=== PATIENT | female | born 1990 | race Caucasian/White ===

== ENCOUNTER → 2018-01-16 | Outpatient (CLI) | payer OTHER | LOC: M LRY 18:49 | DX: M79.601 Pain in right arm (principal) | CPT/HCPCS: 73090 ==

== ENCOUNTER → 2019-03-30 | Outpatient (CLI) | payer BC ==
--- NOTE | 2019-03-30 08:50 | REP ---
Clinical: Infertility. Technique: Transvaginal examination. Comparison: None. Findings: Heterogeneous anteverted uterus measures 6.0 x 3.3 x 4.0 cm. Endometrial complex measures 4.5 mm thickness and demonstrates a normal trilaminar appearance. Right ovary measures 3.1 x 1.6 x 2.5 cm and includes 12.6 mm follicle along with six sub centimeter follicles measuring between 4.5 and 8.8 mm. Left ovary measures 2.2 x 1.6 x 1.4 cm and includes eight sub centimeter follicles between 1.0 and 2.5 mm. Impression: Few predominantly sub centimeter follicles as described above. Electronically Signed by Alon Kaplan MD 03/30/2019 08:42 A
[2019-03-30 10:32] LABS: ESTRADIOL 57.5 PG/ML; LUTEINIZING HORMONE 4.7 mIU/mL; PROGESTERONE 0.65 NG/ML
== END ==
LOC: M RAD 06:22
PROVIDERS: ATTEND Obstetrics & Gynecology Reproductive Endocrinology
DX: N97.9 Female infertility, unspecified (principal)

== ENCOUNTER → 2019-04-02 | Outpatient (CLI) | payer BC ==
--- NOTE | 2019-04-02 07:39 | REPVR ---
PROCEDURE INFORMATION: Exam: US Pelvis, Transvaginal Exam date and time: 04/02/2019 6:50 AM Age: 29 years old Clinical indication: Screening exam; Follicle study; Additional info: Infertility TECHNIQUE: Imaging protocol: Real-time transvaginal pelvic ultrasound with image documentation. Transvaginal imaging was used for better evaluation of the endometrium and adnexa. COMPARISON: Transvaginal NON- US 03/30/2019 7:06 AM FINDINGS: Uterus/cervix: The uterus measures 6.9 x 3.3 x 4.1 cm. It is homogeneous in echotexture, without demonstrated lesion. Endometrium measures 4 mm in thickness. There is trace fluid in the cervical canal. A cervical nabothian cyst is noted. Right adnexa: The right ovary measures 4.0 x 1.8 x 2.5 cm. It contains follicles measuring 16 x 12 mm, 14 x 13 mm and 11 x 11 mm, as well as 8 additional subcentimeter follicles. Left adnexa: The left ovary measures 1.5 x 2.6 x 1.2 cm. It contains 10 subcentimeter follicles. Free fluid: No free fluid is demonstrated. IMPRESSION: 1. Bilateral ovarian follicles as described. 2. Trace fluid in the cervical canal. Electronically signed by: Yoel Henry On 04/02/2019 07:38:51 AM
[2019-04-02 11:14] LABS: LUTEINIZING HORMONE 9.5 mIU/mL; PROGESTERONE 0.56 NG/ML
== END ==
LOC: M RAD 06:06
PROVIDERS: ATTEND Obstetrics & Gynecology Reproductive Endocrinology
DX: E28.9 Ovarian dysfunction, unspecified (principal)

== ENCOUNTER → 2019-04-05 | Outpatient (CLI) | payer BC ==
--- NOTE | 2019-04-05 09:30 | REP ---
Clinical: Infertility. Technique: Transvaginal ultrasound examination. Findings: Normal anteverted uterus measures 6.5 x 3.3 x 3.8 cm. Endometrial complex measures 9.2 mm thickness and demonstrates normal trilaminar appearance. Right ovary measures 4.5 x 1.8 x 2.0 cm and includes 2.0 cm and 2.2 cm follicles along with four sub centimeter follicles measuring between 5.0 and 9.9 mm. Left ovary measures 2.5 x 1.5 x 1.8 cm and includes four sub centimeter follicles measuring between 3.2 and 4.2 mm. Impression: Normal uterus Predominantly sub centimeter follicles as above. Electronically Signed by Alon Kaplan MD 04/05/2019 09:21 A
[2019-04-05 12:36] LABS: ESTRADIOL 113.7 PG/ML; LUTEINIZING HORMONE 5.8 mIU/mL; PROGESTERONE 3.71 NG/ML
== END ==
LOC: M LAB 07:50
PROVIDERS: ATTEND Obstetrics & Gynecology Reproductive Endocrinology
DX: E28.9 Ovarian dysfunction, unspecified (principal)

== ENCOUNTER → 2020-07-23 | Outpatient (CLI) | payer BC ==
--- NOTE | 2020-07-23 09:02 | REP ---
INDICATION: E28.9 OVARIAN DYSFUNCTION COMPARISON: 04/05/2019 TECHNIQUE: Transvaginal pelvic ultrasound. FINDINGS: Bladder is collapsed. Normal anteverted uterus measures 7.1 x 3.3 x 3.6 cm. The endometrial complex measures 2.8 mm thickness. Few nabothian cysts are identified measuring up to approximately 5.5 mm. No pelvic free fluid. Right ovary measures 3.2 x 2.6 x 3.0 cm and includes 10.8 x 12.8 mm, 8.2 x 13.2 mm, and 12.4 x 10.8 mm follicles along with 5 follicles measuring between 4.3 and 8.3 mm. Left ovary measures 2.6 x 2.4 x 2.6 cm and includes 10.2 x 9.8 mm, 10.6 x 8.0 mm, and 11.0 x 8.1 mm follicles along with 8 follicles measuring between 2.9 and 8.9 mm. IMPRESSION: Normal appearance to the uterus. Nabothian cyst. Bilateral ovaries with follicles as detailed above. <Electronically signed by Alon Kaplan > 07/23/20 [id number]
== END ==
LOC: M WHC 07:09
PROVIDERS: ATTEND Obstetrics & Gynecology Reproductive Endocrinology
DX: E28.9 Ovarian dysfunction, unspecified (principal)

== ENCOUNTER → 2020-07-23 | Outpatient (CLI) | payer BC ==
[2020-07-23 10:55] LABS: ESTRADIOL 54.1 PG/ML; LUTEINIZING HORMONE 0.8 mIU/mL; PROGESTERONE 0.3 NG/ML
== END ==
LOC: M PLALAB 08:37
PROVIDERS: ATTEND Obstetrics & Gynecology Reproductive Endocrinology
DX: E28.9 Ovarian dysfunction, unspecified (principal)

== ENCOUNTER → 2020-07-25 | Outpatient (CLI) | payer BC ==
[2020-07-25 10:43] LABS: ESTRADIOL 148.2 PG/ML; LUTEINIZING HORMONE 0.6 mIU/mL; PROGESTERONE 0.21 NG/ML
== END ==
LOC: M PLALAB 08:06
PROVIDERS: ATTEND Obstetrics & Gynecology Reproductive Endocrinology
DX: E28.9 Ovarian dysfunction, unspecified (principal)

== ENCOUNTER → 2020-07-25 | Outpatient (CLI) | payer BC ==
--- NOTE | 2020-07-25 12:20 | REP ---
INDICATION: E28.9 OVARIAN DYSFUNCTION COMPARISON: None. TECHNIQUE: Transvaginal examination of the uterus and adnexa. FINDINGS: Normal anteverted uterus measures 6.2 x 2.8 x 3.3. The endometrial complex measures 2 mm thickness. No discrete uterine or endometrial abnormalities are appreciated. Right ovary measures 3.2 x 3.1 x 2.6 cm and includes 14 x 16 mm, 16 x 12 mm, 11 x 9 mm, 16 x 14 mm, and 10 x 7 mm follicles along with 10 subcentimeter follicles measuring between 3 and 8 mm. Left ovary measures 2.8 x 2.3 x 2.7 cm and includes 16 x 11 mm, 13 x 10 mm, 14 x 12 mm, and 12 x 9 mm follicles along with 5 subcentimeter follicles measuring between 5 and 9 mm. No pelvic fluid or adnexal mass lesion. IMPRESSION: Bilateral ovarian follicles as noted above. <Electronically signed by Alon Kaplan > 07/25/20 [id number]
== END ==
LOC: M WHC 11:10
PROVIDERS: ATTEND Obstetrics & Gynecology Reproductive Endocrinology
DX: E28.9 Ovarian dysfunction, unspecified (principal)

== ENCOUNTER → 2020-07-28 | Outpatient (CLI) | payer BC ==
[2020-07-28 11:52] LABS: ESTRADIOL 921.9 PG/ML; LUTEINIZING HORMONE 3.1 mIU/mL; PROGESTERONE 1.98 NG/ML
== END ==
LOC: M PLALAB 08:06
PROVIDERS: ATTEND Obstetrics & Gynecology Reproductive Endocrinology
DX: E28.9 Ovarian dysfunction, unspecified (principal)

== ENCOUNTER → 2020-07-28 | Outpatient (CLI) | payer BC ==
--- NOTE | 2020-07-28 08:34 | REP ---
INDICATION: E28.9 OVARIAN DYSFUNCTION. COMPARISON: Comparison study July 25, 2020.. TECHNIQUE: Transvaginal pelvic sonography is performed. Ovarian follicle assessment exam. FINDINGS: Uterine dimensions today are 9.2 x 3.5 x 4.5 cm. Endometrial stripe is 1.1 cm thick. There is a trace of endometrial fluid. No focal uterine mass is seen. No cul-de-sac fluid is seen. The overall dimensions of the right ovary today are 6.7 x 5.0 x 4.2 cm. There are 11 follicles in the right ovary measuring greater than a cm, dimensions as follows: 2.2 x 2.0, 1.0 x 0.6, 1.4 x 1.3, 1.5 x 1.0, 1.2 x 0.6, 1.1 x 0.7, 2.1 x 2.0, 1.5 x 0.5, 1.5 x 0.8, 1.9 x 0.7, and 2.0 x 2.0 cm respectively. There are 3 follicles in the right ovary under a cm as well. The overall dimensions of the left ovary today are 4.2 x 3.3 x 2.6 cm. There are 4 follicles measuring greater than a cm in the left ovary as follows: 2.2 x 1.2, 1.3 x 0.8, 1.5 x 1.4, and 1.8 x 1.6 cm respectively. In addition, the left ovary contains 4 follicles ranging in size from 0.4-0.7 cm. IMPRESSION: Ovarian follicle study as above. <Electronically signed by Sj Reis > 07/28/20 [id number]
== END ==
LOC: M WHC 07:08
PROVIDERS: ATTEND Obstetrics & Gynecology Reproductive Endocrinology
DX: E28.9 Ovarian dysfunction, unspecified (principal)

== ENCOUNTER → 2021-09-15 | Outpatient (CLI) | payer BC ==
[2021-09-15 14:04] LABS: HCG, SERUM QUANTITATIVE < 1.0 MIU/ML
[2021-09-15 14:06] LABS: PROGESTERONE 0.46 NG/ML
[2021-09-15 14:07] LABS: ESTRADIOL 24.5 PG/ML; LUTEINIZING HORMONE 3.6 mIU/mL
== END ==
LOC: M PLALAB 12:03
PROVIDERS: ATTEND Obstetrics & Gynecology Reproductive Endocrinology
DX: Z31.83 Encounter for assisted reproductive fertility procedure cycle (principal)

== ENCOUNTER → 2021-09-15 | Outpatient (CLI) | payer BC | LOC: M WHC 10:32 | PROVIDERS: ATTEND Obstetrics & Gynecology Reproductive Endocrinology | DX: Z31.83 Encounter for assisted reproductive fertility procedure cycle (principal) ==

== ENCOUNTER → 2021-09-22 | Outpatient (CLI) | payer BC ==
[2021-09-22 09:40] LABS: LUTEINIZING HORMONE 12.7 mIU/mL; PROGESTERONE 0.21 NG/ML
== END ==
LOC: M RAD 08:15
PROVIDERS: ATTEND Obstetrics & Gynecology Reproductive Endocrinology
DX: Z31.83 Encounter for assisted reproductive fertility procedure cycle (principal)

== ENCOUNTER → 2021-10-02 | Outpatient (CLI) | payer BC ==
[2021-10-02 10:35] LABS: ESTRADIOL 186.5 PG/ML; PROGESTERONE 25.61 NG/ML
== END ==
LOC: M LAB 07:07
PROVIDERS: ATTEND Obstetrics & Gynecology Reproductive Endocrinology
DX: Z31.49 Encounter for other procreative investigation and testing (principal)

== ENCOUNTER → 2021-10-07 | Outpatient (CLI) | payer BC ==
[2021-10-07 09:24] LABS: PROGESTERONE 29.07 NG/ML
== END ==
LOC: M LAB 06:40
PROVIDERS: ATTEND Obstetrics & Gynecology Reproductive Endocrinology
DX: Z32.00 Encounter for pregnancy test, result unknown (principal)

== ENCOUNTER → 2021-10-09 | Outpatient (CLI) | payer BC ==
[2021-10-09 08:01] LABS: THYROID STIMULATING HORMONE 1.74 uIU/ML (0.358-3.740)
[2021-10-09 11:17] LABS: ESTRADIOL 241.6 PG/ML; PROGESTERONE 31.11 NG/ML
== END ==
LOC: M LAB 06:50
PROVIDERS: ATTEND Obstetrics & Gynecology Reproductive Endocrinology
DX: Z32.01 Encounter for pregnancy test, result positive (principal)

== ENCOUNTER → 2021-10-12 | Outpatient (CLI) | payer BC ==
[2021-10-12 12:45] LABS: PROGESTERONE 38.65 NG/ML
[2021-10-12 12:47] LABS: ESTRADIOL 217.6 PG/ML
== END ==
LOC: M LAB 06:44
PROVIDERS: ATTEND Obstetrics & Gynecology Reproductive Endocrinology
DX: Z32.01 Encounter for pregnancy test, result positive (principal)

== ENCOUNTER → 2022-12-16 | Outpatient (CLI) | payer BC ==
[2022-12-16 07:17] LABS: THYROID STIMULATING HORMONE 1.919 uIU/ML (0.55-4.78)
[2022-12-16 07:18] LABS: ESTRADIOL 562.1 PG/ML; PROGESTERONE 13.99 NG/ML
[2022-12-16 07:33] LABS: HCG, SERUM QUANTITATIVE 7081.6 MIU/ML (<4.2)
== END ==
LOC: M LAB 06:12
PROVIDERS: ATTEND Obstetrics & Gynecology Reproductive Endocrinology
DX: Z32.00 Encounter for pregnancy test, result unknown (principal)

== ENCOUNTER → 2022-12-20 | Outpatient (CLI) | payer BC ==
[2022-12-20 07:06] LABS: ESTRADIOL 594.1 PG/ML; PROGESTERONE 23.74 NG/ML
[2022-12-20 07:16] LABS: HCG, SERUM QUANTITATIVE 20582.7 MIU/ML (<4.2)
== END ==
LOC: M RAD 06:12
PROVIDERS: ATTEND Obstetrics & Gynecology Reproductive Endocrinology
DX: Z32.01 Encounter for pregnancy test, result positive (principal)

== ENCOUNTER → 2023-01-10 | Outpatient (CLI) | payer BC ==
[2023-01-10 17:30] LABS: HEMATOCRIT 42.5 % (36.0-47.0); HEMOGLOBIN 13.7 g/dl (12.0-15.5); MEAN CORPUSCULAR HGB CONC 32.2 g/dl (32.0-36.5); MEAN CORPUSCULAR VOLUME 86.7 fl (80.0-96.0); PLATELET COUNT, AUTOMATED 349 10^3/uL (150-450); WHITE BLOOD COUNT 12.1 10^3/uL (4.0-10.0)
[2023-01-10 17:54] LABS: LDH LACTATE DEHYDROGENASE 119 U/L (120-246)
[2023-01-10 17:55] LABS: ALT/SGPT 35 U/L (7.0-40); AST/SGOT 17 U/L (<34); BILIRUBIN,TOTAL 0.6 MG/DL (0.3-1.2); CREATININE FOR GFR 0.65 MG/DL (0.55-1.30); CREATININE,RANDOM URINE 70.8 MG/DL; GLOMERULAR FILTRATION RATE > 60.0 (>60)
[2023-01-10 18:00] LABS: TOTAL PROTEIN,RANDOM URINE < 6.0 MG/DL (0.0-14.0)
[2023-01-10 18:27] LABS: HIV 1&2 SCREEN NEGATIVE (NEGATIVE)
[2023-01-10 18:35] LABS: HEPATITIS C VIRUS ABY INDEX 0.04 INDEX (<0.8)
[2023-01-10 19:34] LABS: GC DNA AMPLIFICATION NEGATIVE (NEGATIVE)
== END ==
LOC: M PLALAB 14:59
PROVIDERS: ATTEND Advanced Practice Midwife
DX: Z34.81 Encounter for supervision of other normal pregnancy, first trimester (principal)

== ENCOUNTER → 2023-03-22 | Outpatient (CLI) | payer BC | LOC: M RAD 07:17 | PROVIDERS: ATTEND Advanced Practice Midwife | DX: Z34.92 Encounter for supervision of normal pregnancy, unspecified, second trimester (principal) ==

== ENCOUNTER → 2023-05-10 | Outpatient (CLI) | payer BC | LOC: M WHC 08:54 | PROVIDERS: ATTEND Advanced Practice Midwife | DX: Z34.82 Encounter for supervision of other normal pregnancy, second trimester (principal) ==

== ENCOUNTER → 2023-05-17 | Outpatient (CLI) | payer BC ==
[2023-05-17 15:10] LABS: HEMATOCRIT 36.6 % (36.0-47.0); HEMOGLOBIN 12.1 g/dl (12.0-15.5); MEAN CORPUSCULAR HEMOGLOBIN 28.7 pg (27.0-33.0); MEAN CORPUSCULAR HGB CONC 33.1 g/dl (32.0-36.5); MEAN CORPUSCULAR VOLUME 86.7 fl (80.0-96.0); PLATELET COUNT, AUTOMATED 256 10^3/uL (150-450); RED BLOOD COUNT 4.22 10^6/uL (4.00-5.40); WHITE BLOOD COUNT 11.2 10^3/uL (4.0-10.0)
== END ==
LOC: M LAB 13:38
PROVIDERS: ATTEND Advanced Practice Midwife
DX: Z34.82 Encounter for supervision of other normal pregnancy, second trimester (principal)

== ENCOUNTER → 2023-05-26 | Outpatient (CLI) | payer BC | LOC: M LAB 07:09 | PROVIDERS: ATTEND Advanced Practice Midwife | DX: O99.810 Abnormal glucose complicating pregnancy (principal) ==

== ENCOUNTER → 2023-06-22 | Outpatient (CLI) | payer BC | LOC: M WHC 14:53 | PROVIDERS: ATTEND Advanced Practice Midwife | DX: Z34.83 Encounter for supervision of other normal pregnancy, third trimester (principal) ==

== ENCOUNTER → 2023-07-13 | Outpatient (REF) | payer BC | LOC: M SFHCWAGY 12:26 | PROVIDERS: ATTEND Specialist | DX: O10.013 Pre-existing essential hypertension complicating pregnancy, third trimester (principal) ==

== ENCOUNTER → 2023-07-15 | Outpatient (CLI) | payer BC | LOC: M WHC 06:56 | PROVIDERS: ATTEND Advanced Practice Midwife | DX: O10.913 Unspecified pre-existing hypertension complicating pregnancy, third trimester (principal); Z3A.35 35 weeks gestation of pregnancy ==

== ENCOUNTER 2023-07-30 07:35 | Inpatient (IN) | payer BC ==
[~2023-07-30] VITALS: Ht 160 cm; Wt 87.4 kg
[2023-07-30] VITALS (12 sets, daily range): BP systolic 114–147; BP diastolic 72–85
[2023-07-30] MEDS ORDERED: LABE100T6 PO (08:12)
[2023-07-30] MEDS ORDERED: METF850T4 PO (08:12)
[2023-07-30] MEDS ORDERED: TUMS750C22 PO (08:12)
[2023-07-30] MEDS ORDERED: LAMI1TAB8 PO (08:12)
[2023-07-30] MEDS ORDERED: ASPI81CH33 PO (08:12)
[2023-07-30] MEDS ORDERED: MAGN400C PO (08:12)
[2023-07-30] MEDS ORDERED: PRENTAB9 PO (08:12)
[2023-07-30] MEDS ORDERED: HOME MED LIST COMPLETE! XX SCH (08:15)
[2023-07-30] MEDS ORDERED: METF750T36 PO (08:17)
[2023-07-30] MEDS ORDERED: OXYTOCIN DRIP 30 UNITS in IV 1 EA IV PRN (08:55)
[2023-07-30] MEDS ORDERED: METHYLERGONOVINE MALEATE 0.2MG/ML 1ML VIAL IM PRN (08:55)
[2023-07-30] MEDS ORDERED: LIDOCAINE 1% MDV 20ML VIAL INFIL PRN (08:55)
[2023-07-30] MEDS ORDERED: OXYTOCIN INJ 10UNITS/ML 1ML VIAL IV PRN (08:55)
[2023-07-30] MEDS ORDERED: TRANEXAMIC ACID INJection 1,000 MG in NS 100 ML IV PRN (08:55)
[2023-07-30] MEDS: LR 1,000 ML IV SCH (09:47)
[2023-07-30 10:07] LABS: HEMATOCRIT 36.1 % (36.0-47.0); MEAN CORPUSCULAR HEMOGLOBIN 26.7 pg (27.0-33.0); MEAN CORPUSCULAR HGB CONC 33.2 g/dl (32.0-36.5); MEAN CORPUSCULAR VOLUME 80.2 fl (80.0-96.0); PLATELET COUNT, AUTOMATED 238 10^3/uL (150-450); WHITE BLOOD COUNT 9.7 10^3/uL (4.0-10.0)
[2023-07-30 10:35] LABS: URIC ACID 6.1 MG/DL (3.1-7.8)
[2023-07-30 10:37] LABS: ALT/SGPT 17 U/L (7.0-40); AST/SGOT 15 U/L (<34); BILIRUBIN,TOTAL 0.4 MG/DL (0.3-1.2); BLOOD UREA NITROGEN 9 MG/DL (9-23); CALCIUM LEVEL 10.3 MG/DL (8.5-10.1); CARBON DIOXIDE LEVEL 22 MMOL/L (20-31); CHLORIDE LEVEL 102 MMOL/L (98-107); GLOMERULAR FILTRATION RATE > 60.0 (>60); GLUCOSE, FASTING 82 MG/DL (60-100); LDH LACTATE DEHYDROGENASE 141 U/L (120-246); POTASSIUM SERUM 4.3 MMOL/L (3.5-5.1); SODIUM LEVEL 134 MMOL/L (136-145)
[2023-07-30 10:49] LABS: CREATININE,RANDOM URINE 48.2 MG/DL
[2023-07-30 11:06] LABS: TOTAL PROTEIN,RANDOM URINE < 6.0 MG/DL (0.0-14.0)
[2023-07-30 11:26] LABS: HEPATITIS C VIRUS ABY INDEX < 0.02 INDEX (<0.8)
[2023-07-30] MEDS: miSOPROStol 50MCG 1/2 TABLET PO SCH (13:49)
[2023-07-30] MEDS: lamoTRIgine 100MG TAB PO SCH (21:02)
[2023-07-30] MEDS: lamoTRIgine 25MG TAB PO SCH (21:02)
[2023-07-30] MEDS: LABETALOL 100MG TAB PO SCH (21:02)
[2023-07-31] VITALS (34 sets, daily range): BP systolic 108–149; BP diastolic 57–88; O2SAT 97–98
[2023-07-31] MEDS ORDERED: LR 1,000 ML IV SCH (03:40)
[2023-07-31] MEDS ORDERED: diphenhydrAMINE 50MG/ML VIAL IV PRN (04:00)
[2023-07-31] MEDS ORDERED: LR 500 ML IV PRN (04:00)
[2023-07-31] MEDS ORDERED: NALOXONE INJ 0.4MG/1ML VIAL IV PRN (04:00)
[2023-07-31] MEDS ORDERED: EPIDURAL/PCA KEYS XX PRN (04:00)
[2023-07-31] MEDS ORDERED: ePHEDrine SULFATE 25 MG/5 ML(5MG/ML) SYRINGE IVP PRN (04:00)
[2023-07-31] MEDS ORDERED: ONDANSETRON 4MG 2ML VIAL IV PRN (04:00)
[2023-07-31] MEDS ORDERED: FENTANYL 2MCG/ML ROPIVACAINE 0.2% IN 0.9% NACL 100ML IVBAG As Ordered ONE (04:10)
[2023-07-31] MEDS: FENTANYL/ROPIVACAINE/NACL BAG 100 ML EPIDURAL SCH (04:49)
[2023-07-31] MEDS: OXYTOCIN DRIP 30 UNITS in IV 1 EA IV SCH ×2 (06:17→13:30)
[2023-07-31 11:58] LABS: CORD GAS ABE V -9.7; CORD GAS HCO3 V 17.3 MMOL/L; CORD GAS O2 SAT V 60.6 %; CORD GAS PCO2 V 41.5 mmHg; CORD GAS PH V 7.237 UNITS; CORD GAS PO2 V 27.2 mmHg; CORD GAS SBC V 16.1 MMOL/L; CORD GAS TCO2 V 18.5 MMOL/L
[2023-07-31 12:00] LABS: CORD GAS ABE A -10.4; CORD GAS HCO3 A 19.7 MMOL/L; CORD GAS O2 SAT A 72.6 %; CORD GAS PCO2 A 60.3 mmHg; CORD GAS PH A 7.132 UNITS; CORD GAS PO2 A 37.1 mmHg; CORD GAS SBC A 15.9 MMOL/L; CORD GAS TCO2 A 21.6 MMOL/L
[2023-07-31] MEDS ORDERED: ACETAMINOPHEN TAB 650MG DOSE (2X325MG) PO PRN (12:05)
[2023-07-31] MEDS ORDERED: IBUPROFEN 600MG TAB PO PRN (12:05)
[2023-07-31] MEDS ORDERED: METHYLERGONOVINE MALEATE 0.2 MG TAB PO PRN (12:05)
[2023-07-31] MEDS ORDERED: DOCUSATE SODIUM 100MG CAPSULE PO PRN (12:05)
[2023-07-31] MEDS: IBUPROFEN 800 MG TAB PO PRN (13:30)
[2023-07-31] MEDS: PRENATAL VITAMINS CHEWABLE TABLET PO SCH (14:17)
[2023-07-31] MEDS: ACETAMINOPHEN 500 MG TAB PO PRN (14:17)
[2023-07-31] MEDS ORDERED: lamoTRIgine 100MG TAB PO SCH (21:00)
[2023-07-31] MEDS: lamoTRIgine 25MG TAB PO SCH (21:12)
[2023-07-31] MEDS: LABETALOL 100MG TAB PO SCH (21:13)
[2023-07-31] MEDS: lamoTRIgine 100MG TAB PO SCH (21:13)
[2023-08-01 06:00] VITALS: BP 110/61; O2SAT 100
[2023-08-01 09:06] LABS: HEMATOCRIT 34.7 % (36.0-47.0); HEMOGLOBIN 11.1 g/dl (12.0-15.5); MEAN CORPUSCULAR HEMOGLOBIN 26.7 pg (27.0-33.0); MEAN CORPUSCULAR VOLUME 83.4 fl (80.0-96.0); PLATELET COUNT, AUTOMATED 210 10^3/uL (150-450); RED BLOOD COUNT 4.16 10^6/uL (4.00-5.40)
[2023-08-01] MEDS: DIBUCAINE 1% OINTMENT 30GM TOP PRN (09:08)
[2023-08-01 13:20] LABS: ALBUMIN 2.4 G/DL (3.2-5.2); ALKALINE PHOSPHATASE 116 U/L (46-116); ALT/SGPT 15 U/L (7.0-40); AST/SGOT 31 U/L (<34); BILIRUBIN,TOTAL 0.2 MG/DL (0.3-1.2); BLOOD UREA NITROGEN 9 MG/DL (9-23); CALCIUM LEVEL 8.7 MG/DL (8.5-10.1); CARBON DIOXIDE LEVEL 23 MMOL/L (20-31); CHLORIDE LEVEL 110 MMOL/L (98-107); CREATININE FOR GFR 0.76 MG/DL (0.55-1.30); GLOMERULAR FILTRATION RATE > 60.0 (>60); GLUCOSE, FASTING 85 MG/DL (60-100); POTASSIUM SERUM 4.1 MMOL/L (3.5-5.1); SODIUM LEVEL 141 MMOL/L (136-145); TOTAL PROTEIN 5.3 G/DL (5.7-8.2)
[2023-08-01 18:00] VITALS: BP 132/79; O2SAT 98
[2023-08-01 21:00] VITALS: BP 121/68
[2023-08-02 06:00] VITALS: BP 126/65; O2SAT 99
[2023-08-02] MEDS ORDERED: ACET-683 PO (08:33)
[2023-08-02] MEDS ORDERED: IBUP-1022 PO (08:33)
[2023-08-02] MEDS ORDERED: COLA100C5 PO (08:33)
[2023-08-02 08:47] VITALS: BP 128/61
[2023-08-02] MEDS: MEASLES,MUMPS,RUBELLA VACCINE INJ (MMR-II) SC.IMMUN ONE (09:05)
[2023-08-02] MEDS: RHO(D) IMMUNE GLOBULIN/MALTOSE 500MCG(2500IU)/2.2ML VIAL (WINRHO) IM SCH (09:10)
== END 2023-08-02 11:30 | disposition home or self-care (01) | DRG 560 ==
LOC: M LDI 07:35 → M OBS 07-31 14:41
PROVIDERS: ADMIT Obstetrics & Gynecology; ATTEND Obstetrics & Gynecology
PROC: 3E033VJ Introduction of Other Hormone into Peripheral Vein, Percutaneous Approach (ICD-10-PCS; 2023-07-30)
PROC: 10E0XZZ Delivery of Products of Conception, External Approach (ICD-10-PCS; principal; 2023-07-31)
PROC: 0KQM0ZZ Repair Perineum Muscle, Open Approach (ICD-10-PCS; 2023-07-31)
DX: O10.02 Pre-existing essential hypertension complicating childbirth (principal); O99.354 Diseases of the nervous system complicating childbirth; O24.425 Gestational diabetes mellitus in childbirth, controlled by oral hypoglycemic drugs; G40.909 Epilepsy, unspecified, not intractable, without status epilepticus; O70.1 Second degree perineal laceration during delivery; Z3A.38 38 weeks gestation of pregnancy; Z79.84 Long term (current) use of oral hypoglycemic drugs; Z79.899 Other long term (current) drug therapy; Z37.0 Single live birth

== ENCOUNTER → 2023-11-24 | Outpatient (CLI) | payer BC ==
[~2023-11-24] MED LIST: ACET-683 PO; ASPI81CH33 PO; COLA100C5 PO; IBUP-1022 PO; LABE100T6 PO; LAMI1TAB8 PO; MAGN400C PO; METF750T36 PO; METF850T4 PO; PRENTAB9 PO; TUMS750C22 PO
== END ==
LOC: M SOG 08:00
PROVIDERS: ATTEND Physician Assistant
DX: M79.644 Pain in right finger(s) (principal)

== ENCOUNTER → 2024-10-09 | Outpatient (CLI) | payer BC ==
[~2024-10-09] MED LIST changes: +MEDR4TAB PO
== END ==
LOC: M LAB REF 20:44
PROVIDERS: ATTEND Physician Assistant
DX: J06.9 Acute upper respiratory infection, unspecified (principal)

== ENCOUNTER 2024-10-11 06:10 | Emergency (ER) | payer BC ==
[~2024-10-11] VITALS: Ht 160 cm; Wt 95.2 kg
[~2024-10-11 06:10] MED LIST changes: -MEDR4TAB PO
[2024-10-11 06:12] VITALS: BP 102/62; TEMP 97.7; O2SAT 97
[2024-10-11] MEDS ORDERED: MEDR4TAB PO (15:05)
== END 2024-10-11 06:58 | disposition left against medical advice (07) ==
LOC: M ED 06:10
DX: Z53.21 Procedure and treatment not carried out due to patient leaving prior to being seen by health care provider (principal)

== ENCOUNTER 2024-10-11 08:00 | Emergency (ER) | payer BC ==
[2024-10-11] MEDS: ONDANSETRON 4MG ORAL DISINTEGRATING TAB PO ONE (12:12)
[2024-10-11] MEDS: ACETAMINOPHEN 325 MG/10.15 ML UDC PO ONE (12:12)
[2024-10-11] MEDS: LR 1,000 ML IV ONE (12:12)
[2024-10-11 12:47] LABS: PLATELET COUNT, AUTOMATED 231 10^3/uL (150-450)
[2024-10-11 12:55] LABS: HCG, SERUM QUALITATIVE NEGATIVE (NEGATIVE); MONO SCRN NEGATIVE (NEGATIVE)
[2024-10-11 13:08] LABS: ALT/SGPT 27 U/L (7.0-40); AST/SGOT 26 U/L (<34); CALCIUM LEVEL 9.0 MG/DL (8.5-10.1); CARBON DIOXIDE LEVEL 22 MMOL/L (20-31); CHLORIDE LEVEL 105 MMOL/L (98-107); CREATININE FOR GFR 0.88 MG/DL (0.55-1.30); GLOMERULAR FILTRATION RATE 88.4 (>60); MAGNESIUM LEVEL 2.3 MG/DL (1.8-2.4); POTASSIUM SERUM 4.4 MMOL/L (3.5-5.1); SODIUM LEVEL 142 MMOL/L (136-145)
[2024-10-11] MEDS ORDERED: ISOVUE-370 76% 100 ML VIAL As Ordered ONE (13:11)
[2024-10-11 13:27] LABS: ATYPICAL LYMPH 3 % (0-5); EOSINOPHILS 1 % (0-3); LYMPHOCYTES 26 % (16-44); MONOCYTES 12 % (0-5); NEUTROPHILS 58 % (28-66); PLATELET ESTIMATE NORMAL (NORMAL)
[2024-10-11] MEDS: LIDOCAINE VISCOUS 2% SOLN 15 ML UDC SSP ONE (13:38)
[2024-10-11 14:26] VITALS: BP 124/67; TEMP 101.4; O2SAT 98
[2024-10-11] MEDS: IBUPROFEN 100 MG 5 ML SUSP UDC DYE FREE PO ONE (14:28)
[2024-10-11] MEDS ORDERED: MEDR4TAB PO (15:05)
== END 2024-10-11 15:25 | disposition home or self-care (01) ==
LOC: EDBD 08:00 → M ED 08:00
DX: R50.9 Fever, unspecified (principal); B34.9 Viral infection, unspecified; R59.0 Localized enlarged lymph nodes; K14.8 Other diseases of tongue; I10 Essential (primary) hypertension; Z88.0 Allergy status to penicillin; Z88.1 Allergy status to other antibiotic agents; Z91.013 Allergy to seafood; Z79.1 Long term (current) use of non-steroidal anti-inflammatories (NSAID); Z79.899 Other long term (current) drug therapy
CPT/HCPCS: 36415; 70491; 80053; 83605; 83735; 84703; 85025; 86308; 86735; 87486; 87581; 87633; 87798; 87880; 99284; Q9967